=== PATIENT | female | born 1990 | race Caucasian/White ===

== ENCOUNTER 2018-06-27 20:53 | Emergency (ER) | payer MEDICAID, OTHER ==
[~2018-06-27] VITALS: Ht 167.6 cm; Wt 84.6 kg
[~2018-06-27 20:53] MED LIST: DICY10CA88 PO; ZOF4T PO
[2018-06-27 21:02] VITALS: BP 143/75
== END 2018-06-27 21:34 | disposition home or self-care (01) ==
LOC: ER 20:54
DX: S93.601A Unspecified sprain of right foot, initial encounter (principal); X50.1XXA Overexertion from prolonged static or awkward postures, initial encounter; Y93.89 Activity, other specified; Y92.89 Other specified places as the place of occurrence of the external cause; Y99.8 Other external cause status
CPT/HCPCS: 73630; 99283

== ENCOUNTER 2018-09-29 17:51 | Emergency (ER) | payer MEDICAID, OTHER ==
[~2018-09-29] VITALS: Ht 167.6 cm; Wt 78.6 kg
[2018-09-29 19:29] VITALS: BP 121/69
== END 2018-09-29 19:30 | disposition home or self-care (01) ==
LOC: ER 17:52
DX: S06.0X0A Concussion without loss of consciousness, initial encounter (principal); Z79.899 Other long term (current) drug therapy; W22.8XXA Striking against or struck by other objects, initial encounter; Y93.43 Activity, gymnastics; Y92.39 Other specified sports and athletic area as the place of occurrence of the external cause; Y99.8 Other external cause status
CPT/HCPCS: 99281